=== PATIENT | male | born 1990 ===

== ENCOUNTER 2023-08-04 16:43 | Emergency (ER) | payer MEDICAID, SELFPAY ==
[2023-08-04] VITALS (36 sets, daily range): BP systolic 58–137; BP diastolic 33–100; PULSE 66–149; RESP 6–44; TEMP 37.7–42.2; O2SAT 89–98; BMI 29.7
--- NOTE | ~2023-08-04 | XR_ITS ---
EXAMINATION: XR CHEST CLINICAL INFORMATION: Central line placement. COMPARISON: Previous of the same day. TECHNIQUE: Frontal view of the chest was obtained. FINDINGS: The lung volumes are low. There is an endotracheal tube in good position above the herberth. A right central line is at the lower SVC. A gastric tube extends below the diaphragm into the upper abdomen with tip at the midline. There are faint bibasilar opacities. The upper lung murray are clear. The bony structures and soft tissues are unremarkable. XR/XR chest 1V IMPRESSION: Endotracheal tube, gastric tube and central line in place. Faint basilar opacities most consistent with atelectasis.
--- NOTE | ~2023-08-04 | CT_ITS ---
Examination: CT brain and CT cervical spine without contrast. CLINICAL INDICATION: Fall with neck pain. COMPARISON: None. TECHNIQUE: 5 mm thin axial and reformatted 2 mm thin sagittal and coronal images of brain were obtained without contrast. Subsequently axial 3 minutes thin and reformatted 2 mm thin sagittal coronal images of cervical spine were obtained. DLP [id number] examination was performed using dose optimization technique as appropriate, variously including the following: Automated exposure control Adjustment of MA and/or KV according to patient size(this includes techniques or standardized protocols for targeted exams where dose is matched to indication/reason for exam; extremities or head. Use of iterative reconstruction techniques. FINDINGS: Brain: There is no acute intra-axial, extra-axial bleed, masses or midline shift. There is no acute infarction evolution. There is no edema. The cohen to white matter differentiation is maintained normal. Bone windows reveal no calvarial abnormality. No scalp soft tissue normality seen either. There is moderate opacification of left maxillary sinus with mucosal thickening. Rest of the paranasal sinuses and mastoid air cells are well-aerated. Cervical spine: There is mild straightening of cervical lordosis. The vertebral heights, alignment and disc heights are normal. The craniovertebral junction and the C1-C2 alignment is normal. There is no visible acute fracture, dislocation or subluxation seen. The prevertebral and paravertebral soft tissues are normal. There is minimal scarring or atelectasis left lung apex. No evidence of pneumothorax. There is an endotracheal tube and enteric tube in place. Visualized bilateral thyroid lobes, submandibular and parotid glands are symmetrical and normal. CT/CT cervical spine wo IV con IMPRESSION: No acute intracranial process seen. Chronic left maxillary sinus inflammatory changes. Mild straightening of cervical lordosis. There is no visible acute fracture, dislocation or subluxation.
--- NOTE | ~2023-08-04 | XR_ITS ---
EXAMINATION: XR CHEST CLINICAL INFORMATION: Low-dose COMPARISON: None available. TECHNIQUE: Frontal view of the chest was obtained. FINDINGS: The lungs are well-expanded and clear of acute pneumonic process. There is increased bilateral parahilar opacity question edema. The heart size and progress clarities normal. Endotracheal tube tip measures 4.11 cm above the herberth. Enteric tube tip is below diaphragm in the stomach. No gross bony abnormality. XR/XR chest 1V IMPRESSION: 1. Increased bilateral parahilar opacity question edema. 2. No acute pneumonic process. 3. Support lines and catheters are in satisfactory position.
--- NOTE | 2023-08-04 16:50 | ECG_ITS ---
Test Reason : ALTERED MENTAL Blood Pressure : / mmHG Vent. Rate : 138 BPM Atrial Rate : 138 BPM P-R Int : 130 ms QRS Dur : 078 ms QT Int : 308 ms P-R-T Axes : 051 094 040 degrees QTc Int : 466 ms Sinus tachycardia Rightward axis Junctional ST depression, probably normal Borderline ECG No previous ECGs available Referred By: Jim Horta Electronically Signed By:ROWENA LEE
--- NOTE | 2023-08-04 16:54 | ED.OVERDOSE ---
HPI - Overdose General Chief Complaint: Overdose Stated Complaint: od, with c collar, per ems Time Seen by Provider: 08/04/23 16:44 Source: patient Mode of arrival: ambulatory Limitations: no limitations History of Present Illness HPI Narrative: Patient Was found unresponsive by bystanders on the side of the street with crack pipe next to him patient had pinpoint pupil at scene no CPR done, was given 2 mg intranasal Narcan with partial response then was given 1 mg of IV Narcan with motor response became agitated and started breathing , small amount of blood from the mouth with broken teeth on arrival patient was in cervical collar with grunted labored breathing no signs of head injury rectal temperature noted to be 107 saturating 89% on 4 L GCS of 10 with poor gag reflex Related Data Allergies Allergy/AdvReac Type Severity Reaction Status Date / Time No Known Allergies Allergy Verified 08/04/23 16:50 Review of Systems Review of Systems: Yes Unobtainable due to mental status PMFSH Past Medical History Source: unable to obtain Social History Social History Use of substances other than those prescribed or required for medical reasons: Unknown Advance Directives: No Advance Directives Information Provided: No Physical Exam Vital Signs: Vital Signs: Last Vital Signs Temp 99.9 F 08/05/23 01:05 Pulse 88 08/05/23 01:05 Resp 15 08/05/23 01:05 BP 140/86 H 08/05/23 01:05 Pulse Ox 97 08/05/23 01:05 O2 Del Method Mechanical Ventil ation 08/05/23 01:05 O2 Flow Rate 100 08/05/23 00:02 FiO2 100 08/05/23 00:00 BMI result Body Mass Index 29.7 Appearance: Obtunded hyperventilation Eyes: Dilated people bilateral, No Nystagmus ENT: Pharynx normal. Oral Mucosa moist broken lower treat poor dentition with fresh blood in the mouth Neck: Normal inspection. Neck supple. CVS: Normal heart rate and rhythm. Pulses normal. Respiratory: Moderate respiratory distress. Hyperventilation Equal air entry bilateral, bilateral coarse crackles Abdomen: Soft and nontender. Bowel sounds are present, no mass palpable, no CVA tenderness Skin: Skin warm and dry. Normal skin color. Normal skin turgor. Extremities: No lower extremity edema. No calf tenderness Neuro: Obtunded moving extremities to painful stimuli GCS 10 absent gag reflex Medications Administered Discontinued Medications Generic Name Dose Route Start Last Admin Trade Name Rob PRN Reason Stop Dose Admin Acetaminophen 650 mg 08/04/23 17:03 08/04/23 17:07 Acetaminophen Supp 650 Mg Supp.Rect MN 08/04/23 17:04 650 mg ONCE ONE Administration Etomidate 20 mg 08/04/23 17:34 08/04/23 17:38 Etomidate 20 Mg/10 Ml Vial IVPUSH 08/04/23 17:35 20 mg ONCE ONE Administration Sodium Chloride 1,000 mls @ 999 mls/hr 08/04/23 16:50 08/04/23 17:58 Ns IV 08/04/23 17:50 Infused .Q1H1M ONE Infusion Sodium Chloride 1,000 mls @ 999 mls/hr 08/04/23 17:04 08/04/23 19:26 Ns IV 08/04/23 18:04 Infused .Q1H1M ONE Infusion Lactated Ringer's 1,000 mls @ 999 mls/hr 08/04/23 18:00 08/04/23 19:22 Lr IV 08/04/23 19:00 Infused .Q1H1M EBEN Infusion Propofol 1,000 mg in 100 mls @ 0 mls/hr 08/04/23 18:00 08/04/23 21:58 Diprivan IVCONT Infused .Q0M EBEN Titration Protocol Per Protocol Lactated Ringer's 1,000 mls @ 999 mls/hr 08/04/23 18:00 08/04/23 19:47 Lr IV 08/04/23 19:00 Infused .Q1H1M EBEN Infusion Ceftriaxone Sodium 1 gm/ 50 mls @ 100 mls/hr 08/04/23 18:02 08/04/23 20:10 Sodium Chloride IV 08/04/23 18:31 Infused ONCE ONE Infusion Vancomycin HCl 2,000 mg in 500 mls @ 250 mls/hr 08/04/23 20:15 08/04/23 23:00 Vancomycin/Ns IV 08/04/23 22:14 Infused ONCE ONE Infusion Norepinephrine Bitartrate 8 mg in 250 mls @ 0 mls/hr 08/04/23 20:15 08/05/23 00:13 Levophed IV 0.09 mcg/kg/min .Q0M EBEN 15.39 mls/hr Titration Protocol Per Protocol Dexmedetomidine HCl 400 mcg in 100 mls @ 0 mls/hr 08/04/23 20:15 08/04/23 21:34 Precedex IVCONT 1.2 mcg/kg/hr .Q0M EBEN 27.36 mls/hr Titration Protocol Per Protocol Lactated Ringer's 1,000 mls @ 999 mls/hr 08/04/23 20:23 08/04/23 20:59 Lr IVCONT 08/04/23 21:23 Infused .Q1H1M STA Infusion Magnesium Sulfate 2 gm in 50 mls @ 25 mls/hr 08/04/23 20:41 08/04/23 21:25 Magnesium Sulfate/H2o IV 08/04/23 22:40 Infused ONCE ONE Infusion Sodium Bicarbonate 150 meq/ 1,000 mls @ 100 mls/hr 08/04/23 20:50 08/04/23 21:53 Dextrose IV 08/05/23 06:49 100 mls/hr .Q10H STA Administration Lactated Ringer's 1,000 mls @ 999 mls/hr 08/04/23 22:03 08/05/23 00:31 Lr IVCONT 08/04/23 23:03 Infused .Q1H1M STA Infusion Naloxone HCl 5 mg/ Dextrose 100 mls @ 10 mls/hr 08/04/23 22:15 08/04/23 22:38 IV 0.5 mg/hr .Q10H EBEN 10 mls/hr Administration 0.5 MG/HR Potassium Chloride 10 meq in 100 mls @ 100 mls/hr 08/04/23 23:31 08/05/23 01:03 Potassium Chloride/H20 IV 08/05/23 00:30 Infused ONCE ONE Infusion Ketorolac Tromethamine 30 mg 08/04/23 20:05 08/04/23 20:25 Ketorolac Tromethamine 30 Mg/Ml Vial IVPUSH 08/04/23 20:06 30 mg ONCE ONE Administration Midazolam HCl 2 mg 08/04/23 20:15 08/04/23 20:25 Midazolam Hcl/Pf 2 Mg/2 Ml Vial IVPUSH 08/04/23 20:16 2 mg ONCE ONE Administration Naloxone HCl 2 mg 08/04/23 17:22 08/04/23 17:23 Naloxone Hcl 2 Mg/2 Ml Syringe IVPUSH 08/04/23 17:23 2 mg ONCE ONE Administration Naloxone HCl 2 mg 08/04/23 22:03 08/04/23 22:25 Naloxone Hcl 2 Mg/2 Ml Syringe IVPUSH 08/04/23 22:04 2 mg ONCE ONE Administration Pantoprazole Sodium 80 mg 08/04/23 17:47 08/04/23 19:43 Pantoprazole Sodium 40 Mg/10 Ml Vial IVPUSH 08/04/23 17:48 80 mg ONCE ONE Administration Rocuronium [place] 50 mg 08/04/23 17:36 08/04/23 17:40 Rocuronium [place] 50 Mg/5 Ml Vial IVPUSH 08/04/23 17:37 50 mg ONCE ONE Administration Rocuronium [place] 50 mg 08/04/23 18:43 08/04/23 18:47 Rocuronium [place] 50 Mg/5 Ml Vial IVPUSH 08/04/23 18:44 50 mg ONCE ONE Administration Rocuronium [place] 100 mg 08/04/23 22:10 08/04/23 22:25 Rocuronium [place] 50 Mg/5 Ml Vial IVPUSH 08/04/23 22:11 100 mg ONCE ONE Administration Procedures Central Line Placement Right IJ: Time Out Performed: No Patient Placed on Monitor/Pulse Ox: Yes MD Prep: mask, gown and gloves Central Line Prep: Chlorhexidine scrub Ultrasound Used for Placement: Yes Central Line Lumen Inserted: triple Post Procedure: sutured in place, good blood return, all ports aspirated, flushed, capped and sterile dressing applied Patient Tolerated Procedure: well Complications: none Intubation Time out performed: Yes sedative: Etomidate Mg Given: 20 paralytic: Rocuronium Mg Given: 50 Laryngoscope: Mahsa ET Tube Size: 8 ET Tube Uncuffed: Yes Tube Secured Depth (cm): 24 Tube Secured Location: teeth Tube Placement Confirmation: equal breath sounds bilaterally and confirmation by capnometry Patient Tolerated Procedure: no complications Intubation Complications: none Medical Decision Making Medical Decision Making MDM Narrative: Patient overdosed with hyperthermia rectal temperature of 107.9 degrees obtunded intubated for airway protection at elevated lactic acid and creatinine prophylactic antibiotic Rocephin vancomycin were given during stay patient became hypotensive systolic blood pressure in 70s received 6 L of IV fluid with IVC compressed output only 300 cc echo without pericardial effusion hypodynamic contractions patient continued to be hypotensive in spite of IV fluids and Levophed drip propofol drip was stopped and precedex drip started still patient was hypotensive pupils pinpoint again started a Narcan drip blood pressure improved to 120/84 with pulse rate of 86 temperature of 100.2 degrees is still requiring 100% FiO2 to keep saturation above 93% 2300 No ICU bed in our hospital [facility] not accepting any ICU patient. Bed available at [facility] accepted the patient under Dr. Blake in ICU Differential Diagnosis Differential Diagnoses: The differential diagnosis associated with the presentation includes Sepsis/metabolic encephalopathy/drug abuse/malignant hyperthermia/pneumonia/intracranial injury/rhabdomyolysis Admission/Observation Consideration of admission/observation: Escalation of care including admission/observation considered Lab Data MDM Lab Attestation statement: I reviewed the patient's lab results. 08/04/23 16:58 08/04/23 17:02 Labs: Lab Results 08/04/23 08/04/23 08/04/23 Range/Units 16:49 16:58 16:58 WBC 14.3 H (4.8-10.8) X10*3/uL RBC 4.90 (4.60-5.80) X10*6/uL Hgb 14.3 (14.0-18.0) g/dl Hct 41.7 L (42.0-52.0) % MCV 85.1 (80.0-98.0) fL MCH 29.2 (27.0-33.0) pg MCHC 34.3 (31.0-36.0) g/dl RDW 13.7 (11.0-16.0) % Plt Count 330 (160-400) X10*3/uL MPV 10.3 (9.4-12.4) fL Immature Gran % (Auto) 0.7 H (0.0-0.4) % Neut % (Auto) 64.5 (45-73) % Lymph % (Auto) 26.5 (20-40) % [place] % (Auto) 7.9 (2-11) % Eos % (Auto) 0.0 (0-4) % Baso % (Auto) 0.4 (0-2) % Lymph # (Auto) 3.8 (1.2-4.9) X10*3/uL [place] # (Auto) 1.1 (0.1-1.2) X10*3/uL Eos # (Auto) 0.0 (0.0-0.4) X10*3/uL Baso # (Auto) 0.1 (0.0-0.2) X10*3/uL Abs Immat Gran (auto) 0.10 H (0.00-0.03) X10*3/uL Absolute Neuts (auto) 9.3 H (2.0-8.3) x10*3/uL Absolute Nucleated RBC 0.000 (0.0-0.012) X10*3/uL Nucleated RBC % (auto) 0.0 (0.0-0.2) /100WBC Smear Tech's Comments VBG pH (7.32-7.43) VBG pCO2 mmHg VBG pO2 mmHg VBG HCO3 (22-26) mmol/L VBG O2 Saturation % VBG Base Excess mmol/L Sodium (135-145) mmol/L Potassium (3.3-5.1) mmol/L Chloride (96-108) mmol/L Carbon Dioxide (22-29) mmol/L Anion Gap (12-20) BUN (9-16) mg/dL Creatinine (0.5-1.4) mg/dL Estim Creat Clear Calc Estimated GFR POC Glucose 183 H (60-115) mg/dL Random Glucose (60-115) mg/dL Lactic Acid (0.5-2.0) mmol/L Lactic Acid F/U @ 2Hr (0.5-2.0) mmol/L Lactic Acid F/U @ 4Hr (0.5-2.0) mmol/L Calcium (8.4-10.2) mg/dL Magnesium (1.6-2.6) mg/dL Total Bilirubin (0.0-1.0) mg/dL AST (5-37) U/L ALT (0-40) U/L Alkaline Phosphatase (39-117) U/L Total Creatine Kinase (38-174) U/L Troponin I High Sens 82.0 H (<3.5-35.0) ng/L Total Protein (6.5-8.0) g/dL Albumin (3.5-5.0) g/dL Urine Color Urine Appearance Urine pH (5.0-9.0) Ur Specific [place] (1.005-1.025) Urine Protein (Neg-Trace) mg/dL Urine Glucose (UA) (Negative) mg/dL Urine Ketones (Negative) mg/dL Urine Blood (Negative) Urine Nitrite (Negative) Ur Leukocyte Esterase (Negative) Urine RBC (0-2) /HPF Urine WBC (0-5) /HPF Ur Squamous Epith Cells (0-2) /HPF Urine Bacteria (None Seen) Hyaline Casts (0-2) /LPF Salicylates (15-30) mg/dL Urine Opiates Screen (Not Detect) Urine Fentanyl Screen (Not Detect) Acetaminophen (<30) mcg/mL Ur Barbiturates Screen (Not Detect) Ur Phencyclidine Scrn (Not Detect) Ur Amphetamines Screen (Not Detect) U Benzodiazepines Scrn (Not Detect) Urine Cocaine Screen (Not Detect) U Marijuana (THC) Screen (Not Detect) Ethyl Alcohol mg/dL COVID-19 (HOOD) (Negative) COVID-19 Clin Com 08/04/23 08/04/23 08/04/23 Range/Units 16:58 16:58 16:58 WBC (4.8-10.8) X10*3/uL RBC (4.60-5.80) X10*6/uL Hgb (14.0-18.0) g/dl Hct (42.0-52.0) % MCV (80.0-98.0) fL MCH (27.0-33.0) pg MCHC (31.0-36.0) g/dl RDW (11.0-16.0) % Plt Count (160-400) X10*3/uL MPV (9.4-12.4) fL Immature Gran % (Auto) (0.0-0.4) % Neut % (Auto) (45-73) % Lymph % (Auto) (20-40) % [place] % (Auto) (2-11) % Eos % (Auto) (0-4) % Baso % (Auto) (0-2) % Lymph # (Auto) (1.2-4.9) X10*3/uL [place] # (Auto) (0.1-1.2) X10*3/uL Eos # (Auto) (0.0-0.4) X10*3/uL Baso # (Auto) (0.0-0.2) X10*3/uL Abs Immat Gran (auto) (0.00-0.03) X10*3/uL Absolute Neuts (auto) (2.0-8.3) x10*3/uL Absolute Nucleated RBC (0.0-0.012) X10*3/uL Nucleated RBC % (auto) (0.0-0.2) /100WBC Smear Tech's Comments VBG pH (7.32-7.43) VBG pCO2 mmHg VBG pO2 mmHg VBG HCO3 (22-26) mmol/L VBG O2 Saturation % VBG Base Excess mmol/L Sodium (135-145) mmol/L Potassium (3.3-5.1) mmol/L Chloride (96-108) mmol/L Carbon Dioxide (22-29) mmol/L Anion Gap (12-20) BUN (9-16) mg/dL Creatinine (0.5-1.4) mg/dL Estim Creat Clear Calc Estimated GFR POC Glucose (60-115) mg/dL Random Glucose (60-115) mg/dL Lactic Acid (0.5-2.0) mmol/L Lactic Acid F/U @ 2Hr (0.5-2.0) mmol/L Lactic Acid F/U @ 4Hr (0.5-2.0) mmol/L Calcium (8.4-10.2) mg/dL Magnesium (1.6-2.6) mg/dL Total Bilirubin (0.0-1.0) mg/dL AST (5-37) U/L ALT (0-40) U/L Alkaline Phosphatase (39-117) U/L Total Creatine Kinase (38-174) U/L Troponin I High Sens (<3.5-35.0) ng/L Total Protein (6.5-8.0) g/dL Albumin (3.5-5.0) g/dL Urine Color Urine Appearance Urine pH (5.0-9.0) Ur Specific [place] (1.005-1.025) Urine Protein (Neg-Trace) mg/dL Urine Glucose (UA) (Negative) mg/dL Urine Ketones (Negative) mg/dL Urine Blood (Negative) Urine Nitrite (Negative) Ur Leukocyte Esterase (Negative) Urine RBC (0-2) /HPF Urine WBC (0-5) /HPF Ur Squamous Epith Cells (0-2) /HPF Urine Bacteria (None Seen) Hyaline Casts (0-2) /LPF Salicylates < 5.0 L (15-30) mg/dL Urine Opiates Screen (Not Detect) Urine Fentanyl Screen (Not Detect) Acetaminophen < 17 (<30) mcg/mL Ur Barbiturates Screen (Not Detect) Ur Phencyclidine Scrn (Not Detect) Ur Amphetamines Screen (Not Detect) U Benzodiazepines Scrn (Not Detect) Urine Cocaine Screen (Not Detect) U Marijuana (THC) Screen (Not Detect) Ethyl Alcohol 10 mg/dL COVID-19 (HOOD) Negative (Negative) COVID-19 Clin Com See Note 08/04/23 08/04/23 08/04/23 Range/Units 16:58 17:02 17:10 WBC (4.8-10.8) X10*3/uL RBC (4.60-5.80) X10*6/uL Hgb (14.0-18.0) g/dl Hct (42.0-52.0) % MCV (80.0-98.0) fL MCH (27.0-33.0) pg MCHC (31.0-36.0) g/dl RDW (11.0-16.0) % Plt Count (160-400) X10*3/uL MPV (9.4-12.4) fL Immature Gran % (Auto) (0.0-0.4) % Neut % (Auto) (45-73) % Lymph % (Auto) (20-40) % [place] % (Auto) (2-11) % Eos % (Auto) (0-4) % Baso % (Auto) (0-2) % Lymph # (Auto) (1.2-4.9) X10*3/uL [place] # (Auto) (0.1-1.2) X10*3/uL Eos # (Auto) (0.0-0.4) X10*3/uL Baso # (Auto) (0.0-0.2) X10*3/uL Abs Immat Gran (auto) (0.00-0.03) X10*3/uL Absolute Neuts (auto) (2.0-8.3) x10*3/uL Absolute Nucleated RBC (0.0-0.012) X10*3/uL Nucleated RBC % (auto) (0.0-0.2) /100WBC Smear Tech's Comments VBG pH 7.52 H (7.32-7.43) VBG pCO2 22 mmHg VBG pO2 41 mmHg VBG HCO3 18 L (22-26) mmol/L VBG O2 Saturation 73.0 % VBG Base Excess -1.8 mmol/L Sodium 131 L (135-145) mmol/L Potassium 4.8 (3.3-5.1) mmol/L Chloride 95 L (96-108) mmol/L Carbon Dioxide 17 L (22-29) mmol/L Anion Gap 24 H (12-20) BUN 26 H (9-16) mg/dL Creatinine 1.94 H (0.5-1.4) mg/dL Estim Creat Clear Calc 59.3 Estimated GFR 40 POC Glucose (60-115) mg/dL Random Glucose 164 H (60-115) mg/dL Lactic Acid 6.2 H* (0.5-2.0) mmol/L Lactic Acid F/U @ 2Hr (0.5-2.0) mmol/L Lactic Acid F/U @ 4Hr (0.5-2.0) mmol/L Calcium 10.7 H (8.4-10.2) mg/dL Magnesium 1.5 L (1.6-2.6) mg/dL Total Bilirubin 2.1 H (0.0-1.0) mg/dL AST 71 H (5-37) U/L ALT 48 H (0-40) U/L Alkaline Phosphatase 103 (39-117) U/L Total Creatine Kinase (38-174) U/L Troponin I High Sens (<3.5-35.0) ng/L Total Protein 8.5 H (6.5-8.0) g/dL Albumin 5.0 (3.5-5.0) g/dL Urine Color Urine Appearance Urine pH (5.0-9.0) Ur Specific [place] (1.005-1.025) Urine Protein (Neg-Trace) mg/dL Urine Glucose (UA) (Negative) mg/dL Urine Ketones (Negative) mg/dL Urine Blood (Negative) Urine Nitrite (Negative) Ur Leukocyte Esterase (Negative) Urine RBC (0-2) /HPF Urine WBC (0-5) /HPF Ur Squamous Epith Cells (0-2) /HPF Urine Bacteria (None Seen) Hyaline Casts (0-2) /LPF Salicylates (15-30) mg/dL Urine Opiates Screen (Not Detect) Urine Fentanyl Screen (Not Detect) Acetaminophen (<30) mcg/mL Ur Barbiturates Screen (Not Detect) Ur Phencyclidine Scrn (Not Detect) Ur Amphetamines Screen (Not Detect) U Benzodiazepines Scrn (Not Detect) Urine Cocaine Screen (Not Detect) U Marijuana (THC) Screen (Not Detect) Ethyl Alcohol mg/dL COVID-19 (HOOD) (Negative) COVID-19 Clin Com 08/04/23 08/04/23 08/04/23 Range/Units 17:15 17:16 19:08 WBC (4.8-10.8) X10*3/uL RBC (4.60-5.80) X10*6/uL Hgb (14.0-18.0) g/dl Hct (42.0-52.0) % MCV (80.0-98.0) fL MCH (27.0-33.0) pg MCHC (31.0-36.0) g/dl RDW (11.0-16.0) % Plt Count (160-400) X10*3/uL MPV (9.4-12.4) fL Immature Gran % (Auto) (0.0-0.4) % Neut % (Auto) (45-73) % Lymph % (Auto) (20-40) % [place] % (Auto) (2-11) % Eos % (Auto) (0-4) % Baso % (Auto) (0-2) % Lymph # (Auto) (1.2-4.9) X10*3/uL [place] # (Auto) (0.1-1.2) X10*3/uL Eos # (Auto) (0.0-0.4) X10*3/uL Baso # (Auto) (0.0-0.2) X10*3/uL Abs Immat Gran (auto) (0.00-0.03) X10*3/uL Absolute Neuts (auto) (2.0-8.3) x10*3/uL Absolute Nucleated RBC (0.0-0.012) X10*3/uL Nucleated RBC % (auto) (0.0-0.2) /100WBC Smear Tech's Comments VBG pH (7.32-7.43) VBG pCO2 mmHg VBG pO2 mmHg VBG HCO3 (22-26) mmol/L VBG O2 Saturation % VBG Base Excess mmol/L Sodium (135-145) mmol/L Potassium (3.3-5.1) mmol/L Chloride (96-108) mmol/L Carbon Dioxide (22-29) mmol/L Anion Gap (12-20) BUN (9-16) mg/dL Creatinine (0.5-1.4) mg/dL Estim Creat Clear Calc Estimated GFR POC Glucose (60-115) mg/dL Random Glucose (60-115) mg/dL Lactic Acid (0.5-2.0) mmol/L Lactic Acid F/U @ 2Hr (0.5-2.0) mmol/L Lactic Acid F/U @ 4Hr (0.5-2.0) mmol/L Calcium (8.4-10.2) mg/dL Magnesium (1.6-2.6) mg/dL Total Bilirubin (0.0-1.0) mg/dL AST (5-37) U/L ALT (0-40) U/L Alkaline Phosphatase (39-117) U/L Total Creatine Kinase 4768 H (38-174) U/L Troponin I High Sens (<3.5-35.0) ng/L Total Protein (6.5-8.0) g/dL Albumin (3.5-5.0) g/dL Urine Color Dark Yellow Urine Appearance Clear Urine pH 5.5 (5.0-9.0) Ur Specific [place] 1.025 (1.005-1.025) Urine Protein 100 (2+) H (Neg-Trace) mg/dL Urine Glucose (UA) Negative (Negative) mg/dL Urine Ketones 15 (Negative) mg/dL Urine Blood Moderate (2+) H (Negative) Urine Nitrite Negative (Negative) Ur Leukocyte Esterase Negative (Negative) Urine RBC 0-2 (0-2) /HPF Urine WBC 6-10 H (0-5) /HPF Ur Squamous Epith Cells 0-2 (0-2) /HPF Urine Bacteria None Seen (None Seen) Hyaline Casts 0-2 (0-2) /LPF Salicylates (15-30) mg/dL Urine Opiates Screen POSITIVE H (Not Detect) Urine Fentanyl Screen POSITIVE H (Not Detect) Acetaminophen (<30) mcg/mL Ur Barbiturates Screen Not Detected (Not Detect) Ur Phencyclidine Scrn Not Detected (Not Detect) Ur Amphetamines Screen Not Detected (Not Detect) U Benzodiazepines Scrn Not Detected (Not Detect) Urine Cocaine Screen POSITIVE H (Not Detect) U Marijuana (THC) Screen Not Detected (Not Detect) Ethyl Alcohol mg/dL COVID-19 (HOOD) (Negative) COVID-19 Clin Com 08/04/23 08/04/23 08/04/23 Range/Units 19:08 22:52 22:52 WBC 9.4 (4.8-10.8) X10*3/uL RBC 4.21 L (4.60-5.80) X10*6/uL Hgb 12.3 L (14.0-18.0) g/dl Hct 37.0 L (42.0-52.0) % MCV 87.9 (80.0-98.0) fL MCH 29.2 (27.0-33.0) pg MCHC 33.2 (31.0-36.0) g/dl RDW 14.4 (11.0-16.0) % Plt Count 76 L D (160-400) X10*3/uL MPV 9.4 (9.4-12.4) fL Immature Gran % (Auto) 1.3 H (0.0-0.4) % Neut % (Auto) 70.8 (45-73) % Lymph % (Auto) 18.9 L (20-40) % [place] % (Auto) 8.6 (2-11) % Eos % (Auto) 0.2 (0-4) % Baso % (Auto) 0.2 (0-2) % Lymph # (Auto) 1.8 (1.2-4.9) X10*3/uL [place] # (Auto) 0.8 (0.1-1.2) X10*3/uL Eos # (Auto) 0.0 (0.0-0.4) X10*3/uL Baso # (Auto) 0.0 (0.0-0.2) X10*3/uL Abs Immat Gran (auto) 0.12 H (0.00-0.03) X10*3/uL Absolute Neuts (auto) 6.6 (2.0-8.3) x10*3/uL Absolute Nucleated RBC 0.080 H (0.0-0.012) X10*3/uL Nucleated RBC % (auto) 0.9 H (0.0-0.2) /100WBC Smear Tech's Comments VERIFIED VBG pH (7.32-7.43) VBG pCO2 mmHg VBG pO2 mmHg VBG HCO3 (22-26) mmol/L VBG O2 Saturation % VBG Base Excess mmol/L Sodium (135-145) mmol/L Potassium (3.3-5.1) mmol/L Chloride (96-108) mmol/L Carbon Dioxide (22-29) mmol/L Anion Gap (12-20) BUN (9-16) mg/dL Creatinine (0.5-1.4) mg/dL Estim Creat Clear Calc Estimated GFR POC Glucose (60-115) mg/dL Random Glucose (60-115) mg/dL Lactic Acid (0.5-2.0) mmol/L Lactic Acid F/U @ 2Hr 3.0 H* (0.5-2.0) mmol/L Lactic Acid F/U @ 4Hr 2.2 H* (0.5-2.0) mmol/L Calcium (8.4-10.2) mg/dL Magnesium (1.6-2.6) mg/dL Total Bilirubin (0.0-1.0) mg/dL AST (5-37) U/L ALT (0-40) U/L Alkaline Phosphatase (39-117) U/L Total Creatine Kinase (38-174) U/L Troponin I High Sens (<3.5-35.0) ng/L Total Protein (6.5-8.0) g/dL Albumin (3.5-5.0) g/dL Urine Color Urine Appearance Urine pH (5.0-9.0) Ur Specific [place] (1.005-1.025) Urine Protein (Neg-Trace) mg/dL Urine Glucose (UA) (Negative) mg/dL Urine Ketones (Negative) mg/dL Urine Blood (Negative) Urine Nitrite (Negative) Ur Leukocyte Esterase (Negative) Urine RBC (0-2) /HPF Urine WBC (0-5) /HPF Ur Squamous Epith Cells (0-2) /HPF Urine Bacteria (None Seen) Hyaline Casts (0-2) /LPF Salicylates (15-30) mg/dL Urine Opiates Screen (Not Detect) Urine Fentanyl Screen (Not Detect) Acetaminophen (<30) mcg/mL Ur Barbiturates Screen (Not Detect) Ur Phencyclidine Scrn (Not Detect) Ur Amphetamines Screen (Not Detect) U Benzodiazepines Scrn (Not Detect) Urine Cocaine Screen (Not Detect) U Marijuana (THC) Screen (Not Detect) Ethyl Alcohol mg/dL COVID-19 (HOOD) (Negative) COVID-19 Clin Com 08/04/23 08/04/23 Range/Units 22:52 22:59 WBC (4.8-10.8) X10*3/uL RBC (4.60-5.80) X10*6/uL Hgb (14.0-18.0) g/dl Hct (42.0-52.0) % MCV (80.0-98.0) fL MCH (27.0-33.0) pg MCHC (31.0-36.0) g/dl RDW (11.0-16.0) % Plt Count (160-400) X10*3/uL MPV (9.4-12.4) fL Immature Gran % (Auto) (0.0-0.4) % Neut % (Auto) (45-73) % Lymph % (Auto) (20-40) % [place] % (Auto) (2-11) % Eos % (Auto) (0-4) % Baso % (Auto) (0-2) % Lymph # (Auto) (1.2-4.9) X10*3/uL [place] # (Auto) (0.1-1.2) X10*3/uL Eos # (Auto) (0.0-0.4) X10*3/uL Baso # (Auto) (0.0-0.2) X10*3/uL Abs Immat Gran (auto) (0.00-0.03) X10*3/uL Absolute Neuts (auto) (2.0-8.3) x10*3/uL Absolute Nucleated RBC (0.0-0.012) X10*3/uL Nucleated RBC % (auto) (0.0-0.2) /100WBC Smear Tech's Comments VBG pH 7.25 L (7.32-7.43) VBG pCO2 33 mmHg VBG pO2 66 mmHg VBG HCO3 15 L (22-26) mmol/L VBG O2 Saturation 89.0 % VBG Base Excess -10.9 mmol/L Sodium 136 (135-145) mmol/L Potassium 3.0 L D (3.3-5.1) mmol/L Chloride 109 H (96-108) mmol/L Carbon Dioxide 17 L (22-29) mmol/L Anion Gap 13 (12-20) BUN 34 H (9-16) mg/dL Creatinine 1.86 H (0.5-1.4) mg/dL Estim Creat Clear Calc 61.8 Estimated GFR 42 POC Glucose (60-115) mg/dL Random Glucose 89 (60-115) mg/dL Lactic Acid (0.5-2.0) mmol/L Lactic Acid F/U @ 2Hr (0.5-2.0) mmol/L Lactic Acid F/U @ 4Hr (0.5-2.0) mmol/L Calcium 7.3 L D (8.4-10.2) mg/dL Magnesium (1.6-2.6) mg/dL Total Bilirubin 1.2 H (0.0-1.0) mg/dL AST 233 H (5-37) U/L ALT 72 H (0-40) U/L Alkaline Phosphatase 72 (39-117) U/L Total Creatine Kinase 38507 H (38-174) U/L Troponin I High Sens (<3.5-35.0) ng/L Total Protein 5.4 L (6.5-8.0) g/dL Albumin 3.2 L (3.5-5.0) g/dL Urine Color Urine Appearance Urine pH (5.0-9.0) Ur Specific [place] (1.005-1.025) Urine Protein (Neg-Trace) mg/dL Urine Glucose (UA) (Negative) mg/dL Urine Ketones (Negative) mg/dL Urine Blood (Negative) Urine Nitrite (Negative) Ur Leukocyte Esterase (Negative) Urine RBC (0-2) /HPF Urine WBC (0-5) /HPF Ur Squamous Epith Cells (0-2) /HPF Urine Bacteria (None Seen) Hyaline Casts (0-2) /LPF Salicylates (15-30) mg/dL Urine Opiates Screen (Not Detect) Urine Fentanyl Screen (Not Detect) Acetaminophen (<30) mcg/mL Ur Barbiturates Screen (Not Detect) Ur Phencyclidine Scrn (Not Detect) Ur Amphetamines Screen (Not Detect) U Benzodiazepines Scrn (Not Detect) Urine Cocaine Screen (Not Detect) U Marijuana (THC) Screen (Not Detect) Ethyl Alcohol mg/dL COVID-19 (HOOD) (Negative) COVID-19 Clin Com Critical Care Time Critical Care Time Critical Care Time: Yes Total Critical Care Time: 120 Attestation: The patient was critically ill with a high probability of imminent or life threatening deterioration. I spent greater than 130 minutes of discontinuous time evaluating the patient,delivering critical care at the bedside, discussing and evaluating pertinent data with consultants. Critical care time does not include time spent performing separately billable procedures or teaching. Total time spent performing critical care was 120 minutes. Discharge Plan Discharge Clinical Impression: Drug overdose, Cocaine intoxication, Poisoning by opiate or related narcotic, Malignant hyperthermia, Acute hypoxemic respiratory failure Patient Disposition: [facility] Transfer Details: [facility] ICU Dr. Blake Interventions: Acute Care Transfer Worksheet (ED) Last Done: 08/05/23 01:07 Discharge Date/Time: 08/05/23 01:08
[2023-08-04] MEDS: 0.9 % Sodium Chloride 1,000 ML 999 ML IV ×2 (16:57→17:10)
--- NOTE | 2023-08-04 17:05 | PC.NURSE ---
pt comes in unresponsive for suspected overdose. crack pipe found on pt. pt with agonal, grunted breathing. pale mottled skin. very warm to touch. rectal temp 107.9. aware.
[2023-08-04] MEDS: Acetaminophen Supp 650 MG SUPP.RECT PR (17:07)
[2023-08-04 17:08] LABS: MANUAL DIFF FLAG NO
[2023-08-04 17:13] LABS: Basophils Absolute Auto 0.1 X10*3/uL (0.0-0.2); Basophils Percent Auto 0.4 % (0-2); Hematocrit 41.7 % (42.0-52.0); Hemoglobin 14.3 g/dl (14.0-18.0); Imm Gran Pct Auto 0.7 % (0.0-0.4); Lymphocytes Absolute Auto 3.8 X10*3/uL (1.2-4.9); Lymphocytes Percent Auto 26.5 % (20-40); Mean Corpuscular HGB Conc 34.3 g/dl (31.0-36.0); Mean Corpuscular Hemoglobin 29.2 pg (27.0-33.0); Mean Corpuscular Volume 85.1 fL (80.0-98.0); Mean Platelet Volume 10.3 fL (9.4-12.4); Monocytes Absolute Auto 1.1 X10*3/uL (0.1-1.2); Monocytes Percent Auto 7.9 % (2-11); Neutrophils Absolute Auto 9.3 x10*3/uL (2.0-8.3); Neutrophils Percent Auto 64.5 % (45-73); Platelet Count 330 X10*3/uL (160-400); Red Cell Distribution Width 13.7 % (11.0-16.0); White Blood Count 14.3 X10*3/uL (4.8-10.8)
[2023-08-04 17:15] LABS: VBG Base Excess -1.8 mmol/L; VBG HCO3 18 mmol/L (22-26); VBG pCO2 22 mmHg; VBG pH 7.52 (7.32-7.43); VBG pO2 41 mmHg
[2023-08-04 17:16] LABS: Venous Blood Gas Refer to POC result
[2023-08-04] MEDS: Naloxone HCl 2 MG/2 ML SYRINGE IVPUSH ×2 (17:23→22:25)
[2023-08-04 17:25] LABS: COVID-19 Test Negative (Negative); IDNOW Serial# 08D9AD1C
[2023-08-04 17:28] LABS: Appearance Urine Clear; Color Urine Dark Yellow; Glucose Urine UA Negative (Negative); Leukocyte Esterase Urine Negative (Negative); Nitrite Urine Negative (Negative); PH 5.5 (5.0-9.0); Specific Gravity - Urine 1.025 (1.005-1.025); UMIC TRIGGER UACC YES; Urine Blood Moderate (2+) (Negative); Urine Ketones 15 mg/dL (Negative); Urine Protein 100 (2+) mg/dL (Neg-Trace)
[2023-08-04 17:32] LABS: Ethanol 10 mg/dL
[2023-08-04 17:35] LABS: Alanine Aminotransferase 48 U/L (0-40); Alkaline Phosphatase 103 U/L (39-117); Anion Gap 24 (12-20); Aspartate Amino Transferase 71 U/L (5-37); Bilirubin Total 2.1 mg/dL (0.0-1.0); Blood Urea Nitrogen 26 mg/dL (9-16); Calcium 10.7 mg/dL (8.4-10.2); Carbon Dioxide 17 mmol/L (22-29); Chloride 95 mmol/L (96-108); Creatinine Clr Calc Pharmacy 59.3; Estimated Glomerular Filt Rate 40; Glucose Random 164 mg/dL (60-115); Magnesium 1.5 mg/dL (1.6-2.6); Potassium 4.8 mmol/L (3.3-5.1); Sodium 131 mmol/L (135-145); Total Protein 8.5 g/dL (6.5-8.0)
[2023-08-04 17:36] LABS: Acetaminophen LAB < 17 mcg/mL (<30); Salicylate < 5.0 mg/dL (15-30)
[2023-08-04] MEDS: Etomidate 20 MG/10 ML VIAL IVPUSH (17:38)
[2023-08-04 17:39] LABS: Bacteria Urine None Seen (None Seen); Hyaline Casts Urine 0-2 /LPF (0-2); RBC Urine 0-2 /HPF (0-2); Squamous Epithelial Cell Urine 0-2 /HPF (0-2); UACC Culture Trigger YES
[2023-08-04 17:39] LABS: Lactic Acid 6.2 mmol/L (0.5-2.0)
[2023-08-04] MEDS: Rocuronium Bromide 50 MG/5 ML VIAL IVPUSH ×2 (17:40→18:47)
[2023-08-04] MEDS: propofoL 1,000 MG/100 ML VIAL 16.42 MG IVCONT (18:23)
[2023-08-04 18:24] LABS: Amphetamine Screen Urine Not Detected (Not Detect); Barbiturates, Urine Not Detected (Not Detect); Benzodiazepines Screen Urine Not Detected (Not Detect); Cannabinoid Screen Urine Not Detected (Not Detect); Cocaine Screen Urine POSITIVE (Not Detect); Fentanyl, urine POSITIVE (Not Detect); Opiate Screen Urine POSITIVE (Not Detect); Phencyclidine Screen Urine Not Detected (Not Detect)
[2023-08-04] MEDS: Lactated Ringers 1,000 ML 999 ML IV ×2 (18:26→19:16)
--- NOTE | 2023-08-04 18:33 | PC.NURSE ---
Addendum entered by Karena Gregory RN 08/04/23 18:58: pt on AC volume. BL breath sounds and + color change from intubation. Original Note: LATE ENTRY: pt [facility] from [facility] in [place] after being found unconscious by bystanders. EMS gave 4mg IN narcan and no response. placed pt in c-collar for possible injury due to blood around nose. EMS started 20G IV to the LAC and gave 1mg IV narcan with little response. upon arrival to ED, pt appeared pale, mottled, obtunded, apneic, no response to verbal, or tactile stimuli. pt placed on 1.5L O2 via nc. EKG obtained, 20G IV access to RAC, labs drawn and sent. fluids started per jan. pt found to have 107.9 rectal temp. given ice packs and tylenol MA. difficult to find good pleth for O2 sat. found to be desating and put on non-rebreather at 15L. temp sensing khan inserted and urine sample obtained. pt given another 2mg IV narcan per Dr. Barker. pt became agitated and trying to pull out khan. pt started to spit up bloody secretions and required some suctioning. pt desated and RT began bagging pt. pt transferred from ED6 to ED5 for preparation to intubate. pt intubated at 1741. size 8 et tube. 25 at the lip. Vent settings: 14RR 480 tidal volume 7 PEEP 100% FiO2 pt given cooling blanket, chilled fluids, and packs of ice/ice packs to bring down temp. vss mouna.
[2023-08-04 18:43] LABS: Glucose, Whole Blood 183 mg/dL (60-115)
--- NOTE | 2023-08-04 18:47 | PC.NURSE ---
pt bucking vent, moving in bed, provider notified, pt medicated with 50 rojelio per order
--- NOTE | 2023-08-04 18:50 | PC.NURSE ---
pt with chipped/pointy front tooth. be cautious when moving ET tube so tube doesn't get damaged/cut.
[2023-08-04 19:03] LABS: Reflex Lactate? Lactic Acid Added
[2023-08-04] MEDS: Pantoprazole Sodium 40 MG/10 ML VIAL 80 MG IVPUSH (19:43)
[2023-08-04] MEDS: cefTRIAXone sodium 1 GM in 0.9 % Sodium Chloride 50 ML IV (19:43)
--- NOTE | 2023-08-04 20:01 | PC.NURSE ---
blood pressure decreased, MD in room at bedside, verbal order for additional liter of LR and to stop propofol
[2023-08-04] MEDS: Midazolam HCl/PF 2 MG/2 ML VIAL IVPUSH (20:25)
[2023-08-04] MEDS: Ketorolac Tromethamine 30 MG/ML VIAL IVPUSH (20:25)
[2023-08-04] MEDS: Lactated Ringers 1,000 ML 999 ML IVCONT ×2 (20:27→23:11)
[2023-08-04] MEDS: dexmedeTOMIDidine HCL/NS 400 MCG/100 ML INFUS..BTL 22.8 MCG IVCONT (20:41)
[2023-08-04] MEDS: Norepinephrine Bitartrate/D5W 8 MG/250 ML PLAST..BAG 8.55 MG IV (20:43)
[2023-08-04] MEDS: vancomycin/NS 2,000 MG/500 ML PLAST..BAG 250 MG IV (20:51)
[2023-08-04] MEDS: Magnesium Sulfate/H2O 2 GM/50 ML PIGGYBACK IV (20:55)
[2023-08-04 21:23] LABS: Reflex Lactate? 2 Y
--- NOTE | 2023-08-04 21:23 | PC.NURSE ---
md aware of continued low BP. Provider to put in central line
[2023-08-04] MEDS: Sodium Bicarbonate 8.4% 150 MEQ in Dextrose 5 % 850 ML 100 MEQ IV (21:53)
--- NOTE | 2023-08-04 22:00 | PC.NURSE ---
central line placed by Dr. Carrillo, Levophed and Precedex moved to central line
[2023-08-04] MEDS: Rocuronium Bromide 50 MG/5 ML VIAL 100 MG IVPUSH (22:25)
[2023-08-04] MEDS: Naloxone HCl 5 MG in Dextrose 5 % 95 ML 10 MG IV (22:38)
[2023-08-04 23:00] LABS: Basophils Percent Auto 0.2 % (0-2); Eosinophils Percent Auto 0.2 % (0-4); PLT CLUMP 1; Red Cell Distribution Width 14.4 % (11.0-16.0); SCAN SMEAR FLAG 1
[2023-08-04 23:02] LABS: Hemoglobin 12.3 g/dl (14.0-18.0); Imm Gran Abs Auto 0.12 X10*3/uL (0.00-0.03); Imm Gran Pct Auto 1.3 % (0.0-0.4); Lymphocytes Absolute Auto 1.8 X10*3/uL (1.2-4.9); Lymphocytes Percent Auto 18.9 % (20-40); MANUAL DIFF FLAG SCAN; Mean Corpuscular HGB Conc 33.2 g/dl (31.0-36.0); Mean Corpuscular Hemoglobin 29.2 pg (27.0-33.0); Mean Corpuscular Volume 87.9 fL (80.0-98.0); Mean Platelet Volume 9.4 fL (9.4-12.4); Monocytes Absolute Auto 0.8 X10*3/uL (0.1-1.2); Monocytes Percent Auto 8.6 % (2-11); NRBC Pct Auto 0.9 /100WBC (0.0-0.2); Neutrophils Absolute Auto 6.6 x10*3/uL (2.0-8.3); Neutrophils Percent Auto 70.8 % (45-73); Red Blood Count 4.21 X10*6/uL (4.60-5.80)
[2023-08-04 23:04] LABS: VBG Base Excess -10.9 mmol/L; VBG HCO3 15 mmol/L (22-26); VBG pCO2 33 mmHg; VBG pH 7.25 (7.32-7.43); VBG pO2 66 mmHg
[2023-08-04 23:06] LABS: Venous Blood Gas Refer to POC result
[2023-08-04 23:17] LABS: Platelet Count 76 X10*3/uL (160-400); White Blood Count 9.4 X10*3/uL (4.8-10.8)
[2023-08-04 23:18] LABS: SLIDE REVIEW VERIFIED
[2023-08-04 23:21] LABS: ~Lactic Acid-LAB USE ONLY 2.2 mmol/L (0.5-2.0)
[2023-08-04 23:26] LABS: Alanine Aminotransferase 72 U/L (0-40); Albumin Level 3.2 g/dL (3.5-5.0); Alkaline Phosphatase 72 U/L (39-117); Anion Gap 13 (12-20); Aspartate Amino Transferase 233 U/L (5-37); Bilirubin Total 1.2 mg/dL (0.0-1.0); Blood Urea Nitrogen 34 mg/dL (9-16); Calcium 7.3 mg/dL (8.4-10.2); Carbon Dioxide 17 mmol/L (22-29); Chloride 109 mmol/L (96-108); Creatinine Clr Calc Pharmacy 61.8; Estimated Glomerular Filt Rate 42; Glucose Random 89 mg/dL (60-115); Sodium 136 mmol/L (135-145); Total Protein 5.4 g/dL (6.5-8.0)
[2023-08-04] MEDS: Potassium Chloride/H20 10 MEQ/100 ML PIGGYBACK 100 MEQ IV (23:47)
[2023-08-05] VITALS: BP 120/87; PULSE 75; O2SAT 99
[2023-08-05 00:02] VITALS: BP 97/59; PULSE 86; RESP 15; TEMP 37.8; O2SAT 98
[2023-08-05 00:13] VITALS: BP 88/58; PULSE 78
[2023-08-05 00:20] VITALS: BP 98/70; PULSE 75; RESP 13; TEMP 37.7; O2SAT 99
--- NOTE | 2023-08-05 01:01 | PC.NURSE ---
LATE ENTRY: patient was pulled off propofol due to falling blood pressure, Precedex and Levophed started at starting rate Blood pressure not improving, rate increased (see MAR) Total urine output since 7pm 08/04 is 110 mls of dark yellow urine pupils non-reactive bilaterally
--- NOTE | 2023-08-05 01:03 | MHC.EDTECH ---
call out to [facility] line at [address] Lucero Horta for possible transfer
--- NOTE | 2023-08-05 01:03 | PC.NURSE ---
PER MD, Sodium Bicarb, KCl and Lactated Ringers to be removed for transport of patient. Medications stayed on patient until EMS departure from ED Narcan drip, Levophed drip and Precedex drip stayed on
[2023-08-05 01:05] VITALS: BP 140/86; PULSE 88; RESP 15; TEMP 37.7; O2SAT 97
--- NOTE | 2023-08-05 01:05 | PC.NURSE ---
Vent Settings upon departure of ED: RR: 14 VT: 480 O2: 100% Peep: 7 size 8, 26@ lip
--- NOTE | 2023-08-05 01:06 | PC.NURSE ---
report called to [facility] [place] ICU
--- NOTE | 2023-08-05 01:13 | MHC.EDTECH ---
[facility] transfer denied transfer
--- NOTE | 2023-08-05 01:15 | MHC.EDTECH ---
call out to [facility] transfer line at [phone] for possible transfer Transfer accepted to ICU RM [id number] Grant Nurse to Nurse number was given [phone]
--- NOTE | 2023-08-05 01:32 | MHC.EDTECH ---
Call out to [facility] at 2330 to book transfer for pt, estimated Eta given was [phone]
== END 2023-08-05 01:08 | disposition short-term general hospital (02) ==
PROVIDERS: Emergency Provider Internal Medicine
DX: T40.5X1A Poisoning by cocaine, accidental (unintentional), initial encounter (principal); T40.2X1A Poisoning by other opioids, accidental (unintentional), initial encounter; T88.3XXA Malignant hyperthermia due to anesthesia, initial encounter; R40.2420 Glasgow coma scale score 9-12, unspecified time; R51.9 Headache, unspecified; R00.0 Tachycardia, unspecified; M54.2 Cervicalgia; I95.9 Hypotension, unspecified; J96.01 Acute respiratory failure with hypoxia; Y92.9 Unspecified place or not applicable; F14.129 Cocaine abuse with intoxication, unspecified; Z20.822 Contact with and (suspected) exposure to COVID-19; Z20.828 Contact with and (suspected) exposure to other viral communicable diseases; Z79.899 Other long term (current) drug therapy
CPT/HCPCS: 31500; 36415; 70450; 71045; 72125; 80053; 80143; 80179; 80307; 81001; 82550; 82803; 82947; 83605; 83735; 84484; 85025; 87040; 87086; 87635; 93005; 94002; 96361; 96365; 96366; 96367; 96368; 96375; 96376; 99285; J0696; J1885; J2250; J3370; J3475